=== PATIENT | female | born 1945 | race Caucasian/White ===

== ENCOUNTER 2024-08-19 13:12 | Emergency (ER) | payer MEDICARE, SELFPAY ==
[2024-08-19] VITALS (9 sets, daily range): BP systolic 149–200; BP diastolic 69–98; PULSE 75–88; RESP 11–23; TEMP 36.4; O2SAT 92–99; BMI 30.2
--- NOTE | 2024-08-19 | DI.CT.S_ITS ---
PROCEDURE: CT ANGIO HEAD AND NECK INDICATIONS: TIA TECHNIQUE: After the administration of intravenous contrast, 1 mm thick sections acquired from the aortic arch through the [place] of [place]. 3-dimensional kfazbwa-iwkxdeifc-hnfspnxgis (MIP) and/or volume rendering reformats were acquired of the central intracranial vasculature and neck separately. For radiation dose reduction, the following was used: automated exposure control, adjustment of mA and/or kV according to patient size. COMPARISON: [facility], CR, XR CHEST 1V, 08/19/2024, 13:46. [facility], CT, CT HEAD/BRAIN WO CON, 08/19/2024, 13:51. FINDINGS: Image quality: Diagnostic. BRAIN: CSF spaces: Ventricles are normal in size and shape. Basal cisterns are patent. No extra-axial fluid collections. Brain: No significant abnormality of the brain can be seen. Skull and face: Calvarium and facial bones appear intact, without suspicious lesions. Orbits appear normal. Sinuses: Sinuses and mastoids are clear. HEAD CT ANGIOGRAPHY: Anterior circulation: Intracranial internal carotid arteries are normal in size and flow. The flow within the paired anterior cerebral arteries is normal and symmetric. The flow within the middle cerebral arteries is normal and symmetric. The anterior communicating artery is seen. No aneurysms are seen. Posterior circulation: Visualized portions of the vertebral arteries demonstrate normal caliber, and join to form a normal appearing basilar artery. There is a prominent left posterior communicating artery seen, with an accompanying diminutive left P1 segment. This is attributed to a type origin of the right posterior cerebral artery, which is considered to be a normal developmental variant of typically no clinical consequence. The flow within the posterior cerebral arteries is normal and symmetric. No aneurysms are seen. NECK CT ANGIOGRAPHY: Carotid system: The great vessels demonstrate a conventional anatomy as they arise from the aortic arch. The origins of the common carotid arteries appear patent. The common carotid arteries demonstrate normal caliber and courses. The bifurcation regions are both widely patent. The internal carotid arteries demonstrate normal calibers. Moderate tortuosity can be seen involving the right proximal internal carotid artery. Posterior circulation: The origins of the vertebral arteries both appear widely patent. The more superior extracranial portions of both vertebral arteries also demonstrate normal courses and calibers. The right vertebral artery is dominant to the left. Soft tissues: Visualized neck soft tissues demonstrate no suspicious abnormalities. Within the left lung apex, there is poorly defined opacity seen, measuring up to 16 mm, as on series 4, image 300. Bones: No suspicious bony lesions. Visualized cervical spine appears normally aligned. Suie-ov-gqzdstbu cervical spine degenerative change can be seen. IMPRESSION: No significant intracranial arterial abnormality is seen. No significant abnormality is seen within the arteries of the neck. Note made of focal soft tissue opacity involving the left lung apex, measuring 16 mm. Although this is suspected to be related to infection, differential diagnosis would also include neoplasm. Please consider a short-term follow-up full field chest CT in 6-8 weeks for further evaluation. Any quantitative measurements of stenosis were performed using NASCET criteria. Dictated by: Henrique Aranda M.D. on 08/19/2024 at 13:13 Approved by: Henrique Aranda M.D. on 08/19/2024 at 13:15
--- NOTE | 2024-08-19 13:24 | DI.RAD.S_ITS ---
PROCEDURE: XR CHEST 1V INDICATIONS: Possible stroke TECHNIQUE: One view of the chest was acquired. COMPARISON: None. FINDINGS: Surgical changes and devices: None. Lungs and pleura: Lungs are clear. No pleural effusions or pneumothorax. Mediastinum: Mediastinal contours appear normal. Heart size is normal. Bones and chest wall: No suspicious bony lesions. Overlying soft tissues appear unremarkable. IMPRESSION: No acute cardiopulmonary abnormality is seen. Dictated by: Pradeep Torres M.D. on 08/19/2024 at 14:12 Approved by: Pradeep Torres M.D. on 08/19/2024 at 14:12
--- NOTE | 2024-08-19 13:24 | DI.CT.S_ITS ---
PROCEDURE: CT HEAD/BRAIN WO CON INDICATIONS: Positive BE-FAST, Stroke symptoms TECHNIQUE: Noncontrast 4.5 mm thick angled axial sections acquired from the foramen magnum to the vertex, with coronal and sagittal reformats. For radiation dose reduction, the following was used: automated exposure control, adjustment of mA and/or kV according to patient size. COMPARISON: [facility], CT, CT ANGIO HEAD AND NECK, 08/19/2024, 13:51. [facility], CR, XR CHEST 1V, 08/19/2024, 13:46. FINDINGS: Image quality: Diagnostic. CSF spaces: Basal cisterns are patent. No extra-axial fluid collections. The ventricles are symmetric in size and shape. Brain: No intracranial bleeds or masses. There is cerebral volume loss for age, with resultant ventricular and sulcal prominence. There are periventricular and deep white matter chronic small vessel ischemic changes. There is intracranial internal carotid artery atherosclerosis. Skull and face: Calvarium and visualized facial bones appear intact, without suspicious lesions. Sinuses: Visualized sinuses and mastoids are clear. IMPRESSION: No acute intracranial hemorrhage is seen. No acute intracranial pathology. If there is strong clinical suspicion for an acute stroke, please consider a brain MRI for further evaluation, as it is more sensitive (assuming that there is no contraindication to MRI). Dictated by: Henrique Aranda M.D. on 08/19/2024 at 13:06 Approved by: Henrique Aranda M.D. on 08/19/2024 at 13:08
[2024-08-19 13:54] LABS: Add Manual Diff / Slide Review NO; Basophils Absolute Auto 100 /uL (0-100); Basophils Percent Auto 0.9 % (0-2); Eosinophils Absolute Auto 100 /uL (0-450); Eosinophils Percent Auto 0.9 % (2-4); Hematocrit 39.6 % (36-46); Lymphocytes Absolute Auto 2100 /uL (1100-4500); Lymphocytes Percent Auto 26.4 % (25-40); Mean Corpuscular HGB Conc 32.9 % (30-36); Mean Corpuscular Hemoglobin 27.9 PG (26-34); Mean Corpuscular Volume 84.8 fL (80-100); Monocytes Absolute Auto 500 /uL (0-900); Monocytes Percent Auto 6.9 % (3-14); Neutrophils Absolute Auto 5100 /uL (1500-7000); Neutrophils Percent Auto 64.9 % (50-75); Platelet Count 216 X10^3/uL (150-400); Red Blood Cell Count 4.67 X10^6/uL (4.0-5.2); Red Cell Distribution Width 14.2 % (11.6-14.8); White Blood Cell Count 7.8 X10^3/uL (4.5-11.0)
--- NOTE | 2024-08-19 13:58 | PC.NURSE ---
Pt moving all extremities, NIH 0. Pt denies symptoms at this time.
[2024-08-19 14:03] LABS: Prothrombin Time 10.8 SECONDS (9.4-12.5)
[2024-08-19 14:05] LABS: PTT Partial Thromboplastin Tim 30 SECONDS (25.1-36.5)
[2024-08-19 14:07] LABS: Alanine Aminotransferase 24 IU/L (<35); Albumin 4.9 g/dL (3.5-5.0); Alkaline Phosphatase 51 U/L (38-126); Aspartate Aminotransferase 29 IU/L (14-36); BUN Creatinine Ratio 24.7 (6-22); Bilirubin Total 0.8 mg/dL (0.2-1.3); Blood Urea Nitrogen 21 mg/dL (7-17); Calcium 9.7 mg/dL (8.4-10.2); Carbon Dioxide 18 mmol/L (22-32); Chloride 106 mmol/L (98-107); Creatine Kinase 75 U/L (30-135); Estimated Glomerular Filt Rate > 60 mL/min (>60); Globulin 2.4 g/dL (1.7-4.1); Glucose 123 mg/dL (80-110); HEMOLYSIS 16 (0-50); Magnesium 1.7 mg/dL (1.6-2.3); Potassium 4.5 mmol/L (3.4-5.1); Sodium 137 mmol/L (137-145); Total Protein 7.3 g/dL (6.3-8.2)
[2024-08-19 14:18] LABS: Troponin I < 0.012 ng/mL (0.01-0.034)
--- NOTE | 2024-08-19 15:37 | ED.NEUROSD ---
HPI - Neuro Symptoms/Deficit General Chief Complaint: Neuro Symptoms/Deficit Stated Complaint: Possible TIA per patient Time Seen by Provider: 08/19/24 13:13 Source: patient Mode of arrival: Family Vehicle History of Present Illness HPI Narrative: 79-year-old woman with a history of hypertension, hyperlipidemia, diabetes presents with concerns for a few minutes of word-finding difficulties perhaps confusion that occurred at around 8:30 last night. She has since had symptoms resolve entirely. She talked to her physician at the [facility] who recommended further evaluation. She has no complaints of headache, any neurologic findings at this time, chest pain, palpitations, dyspnea, abdominal pain, recent fevers. On Anticoagulants: No Review of Systems Review of Systems Narrative: Pertinent positive and negative findings as per HPI Hematologic/Lymphatic On Anticoagulants: No Patient History Medical History (Updated 08/19/24 @ 15:55 by Tena Silva MD) Diabetes Hyperlipidemia Hypertension Exam Initial Vital Signs Initial Vital Signs: Vital Signs Temperature 97.6 F 08/19/24 13:24 Pulse Rate 76 08/19/24 13:24 Respiratory Rate 18 08/19/24 13:24 Blood Pressure 200/98 H 08/19/24 13:24 Pulse Oximetry 98 08/19/24 13:24 Oxygen Delivery Method Room Air 08/19/24 13:24 General: Healthy appearing, in no acute distress. Able to give a complete and coherent history. Well-nourished well-developed HEENT: Moist mucous membranes, normal sclera with reactive pupils, Neck: No adenopathy Respiratory: Lungs are clear to auscultation, no wheezing no rales no rhonchi. Full and symmetrical air movement Cardiac: Regular rate and rhythm no murmurs no bruits Abdomen: Soft, nontender, no rebound or guarding, no flank pain Skin: Warm and dry, no rashes Neurologic: Grossly neurologically intact with no obvious asymmetries or abnormalities, NIH=0 Extremities: No trauma, well perfused Psych: Cooperative, appropriate insight and affect Course Orders Ordered: ED Orders 08/19/24 13:24 CT head/brain wo con Stat XR chest 1V Stat Urine Drug Screen, Rapid Stat EKG-12 Lead Stat 08/19/24 13:40 Complete Blood Count AUTO DIFF Stat Comprehensive Metabolic Panel Stat Magnesium Stat PTT Partial Thromboplastin Pierre Stat Prothrombin Time INR Stat Troponin & CK Cardiac Panel Stat Ondansetron HCl (Ondansetron 4 Mg/2 Ml Inj) 4 mg IV NOW PRN PRN Reason: Nausea And Vomiting Ondansetron HCl (Ondansetron 4 Mg Odt) 4 mg SL NOW PRN PRN Reason: Nausea And Vomiting Vital Signs Vital signs: Vital Signs - 8 hr 08/19/24 13:24 08/19/24 13:27 08/19/24 13:30 Temperature 97.6 F Pulse Rate 76 85 88 Respiratory Rate 18 Blood Pressure 200/98 H Pulse Oximetry 98 98 98 Oxygen Delivery Method Room Air 08/19/24 13:43 08/19/24 13:43 08/19/24 13:56 Temperature Pulse Rate 79 83 Respiratory Rate 11 L 15 Blood Pressure 171/81 H Pulse Oximetry 98 98 Oxygen Delivery Method Room Air 08/19/24 13:56 08/19/24 14:00 08/19/24 14:00 Temperature Pulse Rate 79 Respiratory Rate 19 Blood Pressure 164/78 H 161/73 H Pulse Oximetry 97 Oxygen Delivery Method 08/19/24 14:30 08/19/24 15:00 Temperature Pulse Rate 81 75 Respiratory Rate 23 16 Blood Pressure Pulse Oximetry 92 98 Oxygen Delivery Method MDM - Neuro Symptoms/Deficit Lab Data 08/19/24 13:40 08/19/24 13:40 Labs: Lab Results 08/19/24 Range/Units 13:40 WBC 7.8 (4.5-11.0) X10^3/uL RBC 4.67 (4.0-5.2) X10^6/uL Hgb 13.0 (12.0-16.0) g/dL Hct 39.6 (36-46) % MCV 84.8 (80-100) fL MCH 27.9 (26-34) PG MCHC 32.9 (30-36) % RDW 14.2 (11.6-14.8) % Plt Count 216 (150-400) X10^3/uL Neut % (Auto) 64.9 (50-75) % Lymph % (Auto) 26.4 (25-40) % [place] % (Auto) 6.9 (3-14) % Eos % (Auto) 0.9 L (2-4) % Baso % (Auto) 0.9 (0-2) % Neut # (Auto) 5100 (6386-0529) /uL Lymph # (Auto) 2100 (8825-2750) /uL [place] # (Auto) 500 (0-900) /uL Eos # (Auto) 100 (0-450) /uL Baso # (Auto) 100 (0-100) /uL PT 10.8 (9.4-12.5) SECONDS INR 1.0 (0.9-1.3) APTT 30 (25.1-36.5) SECONDS Sodium 137 (137-145) mmol/L Potassium 4.5 (3.4-5.1) mmol/L Chloride 106 (98-107) mmol/L Carbon Dioxide 18 L (22-32) mmol/L BUN 21 H (7-17) mg/dL Creatinine 0.85 (0.52-1.04) mg/dL Estimated GFR > 60 (>60) mL/min BUN/Creatinine Ratio 24.7 H (6-22) Glucose 123 H (80-110) mg/dL Calcium 9.7 (8.4-10.2) mg/dL Magnesium 1.7 (1.6-2.3) mg/dL Total Bilirubin 0.8 (0.2-1.3) mg/dL AST 29 (14-36) IU/L ALT 24 (<35) IU/L Alkaline Phosphatase 51 (38-126) U/L Total Creatine Kinase 75 (30-135) U/L Troponin I < 0.012 (0.01-0.034) ng/mL Total Protein 7.3 (6.3-8.2) g/dL Albumin 4.9 (3.5-5.0) g/dL Globulin 2.4 (1.7-4.1) g/dL Albumin/Globulin Ratio 2.0 (1.0-2.8) Point of Care Testing Glucose POC [address] angio Head and Neck: Radiologist's Impression: PROCEDURE: CT ANGIO HEAD AND NECK INDICATIONS: TIA TECHNIQUE: After the administration of intravenous contrast, 1 mm thick sections acquired from the aortic arch through the [place] of [place]. 3-dimensional edidacs-evzzmdtvu-ihnmuherpn (MIP) and/or volume rendering reformats were acquired of the central intracranial vasculature and neck separately. For radiation dose reduction, the following was used: automated exposure control, adjustment of mA and/or kV according to patient size. COMPARISON: [facility], CR, XR CHEST 1V, 08/19/2024, 13:46. [facility], CT, CT HEAD/BRAIN WO CON, 08/19/2024, 13:51. FINDINGS: Image quality: Diagnostic. BRAIN: CSF spaces: Ventricles are normal in size and shape. Basal cisterns are patent. No extra-axial fluid collections. Brain: No significant abnormality of the brain can be seen. Skull and face: Calvarium and facial bones appear intact, without suspicious lesions. Orbits appear normal. Sinuses: Sinuses and mastoids are clear. HEAD CT ANGIOGRAPHY: Anterior circulation: Intracranial internal carotid arteries are normal in size and flow. The flow within the paired anterior cerebral arteries is normal and symmetric. The flow within the middle cerebral arteries is normal and symmetric. The anterior communicating artery is seen. No aneurysms are seen. Posterior circulation: Visualized portions of the vertebral arteries demonstrate normal caliber, and join to form a normal appearing basilar artery. There is a prominent left posterior communicating artery seen, with an accompanying diminutive left P1 segment. This is attributed to a type origin of the right posterior cerebral artery, which is considered to be a normal developmental variant of typically no clinical consequence. The flow within the posterior cerebral arteries is normal and symmetric. No aneurysms are seen. NECK CT ANGIOGRAPHY: Carotid system: The great vessels demonstrate a conventional anatomy as they arise from the aortic arch. The origins of the common carotid arteries appear patent. The common carotid arteries demonstrate normal caliber and courses. The bifurcation regions are both widely patent. The internal carotid arteries demonstrate normal calibers. Moderate tortuosity can be seen involving the right proximal internal carotid artery. Posterior circulation: The origins of the vertebral arteries both appear widely patent. The more superior extracranial portions of both vertebral arteries also demonstrate normal courses and calibers. The right vertebral artery is dominant to the left. Soft tissues: Visualized neck soft tissues demonstrate no suspicious abnormalities. Within the left lung apex, there is poorly defined opacity seen, measuring up to 16 mm, as on series 4, image 300. Bones: No suspicious bony lesions. Visualized cervical spine appears normally aligned. Wrli-lx-[id number] cervical spine degenerative change can be seen. IMPRESSION: No significant intracranial arterial abnormality is seen. No significant abnormality is seen within the arteries of the neck. Note made of focal soft tissue opacity involving the left lung apex, measuring 16 mm. Although this is suspected to be related to infection, differential diagnosis would also include neoplasm. Please consider a short-term follow-up full field chest CT in 6-8 weeks for further evaluation. Any quantitative measurements of stenosis were performed using NASCET criteria. Dictated by: Henrique Aranda M.D. on 08/19/2024 at 13:13 MDM Narrative Medical decision making narrative: CC: 3-4 minutes of word-finding difficulties last night Complicating co-morbidities: Diabetes, hypertension, hyperlipidemia Data collected from: patient, partner Social determinants of health that may influence the patients condition: They live on [facility] with limited access to immediate healthcare Medical records reviewed: No records are immediately available Differential considered: TIA, stroke, infection Exam documented above, pertinent findings include: Patient appears significantly younger than stated age and exam is entirely benign. Her neurologic exam is nonfocal Lab Test results independently reviewed as above. Pertinent findings: CBC is within normal limits Chemistries are reassuring. Creatinine is appropriate. Troponin is undetectable Imaging studies independently reviewed: CT scan of the head is unremarkable Chest x-ray is reassuring CT angiogram of the head and neck shows no vascular abnormalities. Incidentally appreciated is a pulmonary nodule in the apex of the left lung Discussion: 79-year-old woman with 3-5 minutes of word-finding difficulty/confusion last night. CT scan of the head and CT angiography were reassuring. No evidence of acute stroke. Blood pressure was elevated initially but has come down nicely she has been resting in the emergency department. She did take a baby aspirin prior to arrival. Reviewed stroke reduction recommendations including making sure she is checking her blood pressure, continuing her statin, baby aspirin daily. Incidentally noted on the CT angiography is a nodule in the left upper lung field that does need outpatient follow up. Did review this finding with her. At this time there was no indication for life-threatening abnormality, impending stroke, acute cardiovascular issue or reason for additional imaging or hospitalization. She is safe for discharge home Discharge Plan Departure Patient Disposition: Home Clinical Impression: Transient cerebral ischemia Qualifiers: Transient cerebral ischemia type: unspecified Qualified Code(s): G45.9 - Transient cerebral ischemic attack, unspecified Instructions: DI for Transient Ischemic Attack Activity Restrictions/Additional Instructions: Thank you for coming in today I believe that you may have had a small TIA last night. Your workup today does not show evidence for an acute stroke, no masses or tumors in your brain, the blood vessels from your brain down to your heart are all completely open with no signs of restriction, including your carotid arteries. Your blood work was reassuring, there was no evidence of heart attack, anemia, infection. Incidentally noted on your CT angiogram was a small nodule in the left upper lung field. This is not visible on the chest x-ray that we did today. This needs outpatient follow up to make sure that it is not changing. Please make sure you do continue your blood pressure and cholesterol medications, I would add a baby aspirin a day. Encourage you to follow up with your primary care physician If you find that you are getting worse or develop any new symptoms, please feel free to return to the emergency department for further evaluation. and HAPPY BIRTHDAY! Stand Alone Forms: Patient Portal/API/Survey
== END 2024-08-19 16:07 | disposition home or self-care (01) ==
PROVIDERS: Emergency Provider Emergency Medicine
DX: G45.9 Transient cerebral ischemic attack, unspecified (principal)
CPT/HCPCS: 36415; 70450; 70496; 70498; 71045; 80053; 82550; 82962; 83735; 84484; 85025; 85610; 85730; 99284; Q9967